=== PATIENT | female | born 1985 ===

== ENCOUNTER 2024-04-10 16:14 | Outpatient (CLI) | payer BC | END 2024-04-10 16:15 | disposition home or self-care (01) | LOC: SCSRAD 16:14 | PROVIDERS: ATTEND Student in an Organized Health Care Education/Training Program | DX: M21.611 Bunion of right foot (principal); M20.41 Other hammer toe(s) (acquired), right foot; M25.50 Pain in unspecified joint; Z82.61 Family history of arthritis ==